=== PATIENT | male | born 1985 | race African-American/Black ===

== ENCOUNTER 2017-08-22 00:16 | Emergency (ER) | payer SELFPAY ==
[~2017-08-22] VITALS: Ht 182.9 cm; Wt 68.7 kg
[~2017-08-22 00:16] MED LIST: PREDNISONE10 MG PO
[2017-08-22] MEDS ORDERED: TOBREX5 ML LEFT EYE (01:19)
[2017-08-22] MEDS ORDERED: ERYTHROMYC1 APPLICAT LEFT EYE (01:19)
[2017-08-22] MEDS ORDERED: NORCO 5/3251 TABLET PO (01:19)
[2017-08-22 01:34] VITALS: BP 130/95
== END 2017-08-22 01:49 | disposition home or self-care (01) ==
LOC: EME 00:16
DX: H16.132 Photokeratitis, left eye (principal); W89.0XXA Exposure to welding light (arc), initial encounter; Y99.0 Civilian activity done for income or pay; F17.200 Nicotine dependence, unspecified, uncomplicated
CPT/HCPCS: 99281; 99284

== ENCOUNTER 2018-01-28 22:52 | Emergency (ER) | payer SELFPAY ==
[~2018-01-28] VITALS: Ht 185.4 cm; Wt 68.3 kg
[~2018-01-28 22:52] MED LIST changes: +ERYTHROMYC1 APPLICAT LEFT EYE; +NORCO 5/3251 TABLET PO; +TOBREX5 ML LEFT EYE
[2018-01-28 23:06] VITALS: BP 152/103
== END 2018-01-29 02:30 | disposition left against medical advice (07) ==
LOC: EME 22:52
DX: Z53.21 Procedure and treatment not carried out due to patient leaving prior to being seen by health care provider (principal)

== ENCOUNTER 2018-06-05 12:29 | Emergency (ER) | payer OTHER ==
[~2018-06-05] VITALS: Ht 182.9 cm; Wt 67.8 kg
[2018-06-05] MEDS ORDERED: BACLOFEN10 MG PO (14:06)
[2018-06-05] MEDS ORDERED: MOTRIN600 MG PO (14:06)
[2018-06-05] MEDS ORDERED: LIDODERM 5% P1 PATCH TD (14:06)
[2018-06-05 14:38] VITALS: BP 114/82
== END 2018-06-05 14:39 | disposition home or self-care (01) ==
LOC: EME 12:29
DX: M25.511 Pain in right shoulder (principal)
CPT/HCPCS: 73030; 99281; 99283; J1885